=== PATIENT | female | born 1990 | race Caucasian/White ===

== ENCOUNTER → 2018-10-17 | Outpatient (REF) | payer MEDICARE, MEDICAID ==
[~2018-10-17] MED LIST: LATU20TA PO; TRAZ-163 PO; TRIL1TAB PO; TRIL300S PO
[2018-10-17 12:26] LABS: HEMATOCRIT 40.1 % (36.0-47.0); HEMOGLOBIN 12.9 g/dl (12.0-15.5); MEAN CORPUSCULAR HEMOGLOBIN 27.7 pg (27.0-33.0); MEAN CORPUSCULAR HGB CONC 32.2 g/dl (32.0-36.5); MEAN CORPUSCULAR VOLUME 86.1 fl (80.0-96.0); PLATELET COUNT, AUTOMATED 300 10^3/uL (150-450); RED BLOOD COUNT 4.66 10^6/uL (4.00-5.40); WHITE BLOOD COUNT 8.1 10^3/uL (4.0-10.0)
[2018-10-17 12:35] LABS: ALBUMIN 4.1 GM/DL (3.2-5.2); ALT/SGPT 30 U/L (12-78); BILIRUBIN,TOTAL 0.4 MG/DL (0.2-1.0); BLOOD UREA NITROGEN 15 MG/DL (7-18); CALCIUM LEVEL 8.4 MG/DL (8.5-10.1); CARBON DIOXIDE LEVEL 26 MEQ/L (21-32); CHLORIDE LEVEL 111 MEQ/L (98-107); CHOLESTEROL LEVEL 161 MG/DL (<200); CHOLESTEROL RISK RATIO 4.878 (<5); CREATININE FOR GFR 0.77 MG/DL (0.55-1.30); FREE T4 1.08 NG/DL (0.76-1.46); GLOMERULAR FILTRATION RATE > 60.0 (>60); GLUCOSE, FASTING 101 MG/DL (70-100); HDL CHOLESTEROL 33 MG/DL (>40); LDL CHOLESTEROL 105 MG/DL (<100); NON-HDL-C 128 MG/DL; POTASSIUM SERUM 4.4 MEQ/L (3.5-5.1); SODIUM LEVEL 140 MEQ/L (136-145); TOTAL 25(OH) VITAMIN D 19.5 NG/ML (30.0-100.0); TOTAL PROTEIN 6.8 GM/DL (6.4-8.2); TRIGLYCERIDES LEVEL 115 MG/DL (<150); VITAMIN B12 LEVEL 448 PG/ML
[2018-10-17 14:14] LABS: FOLATE 12.7 NG/ML
== END ==
LOC: M SFHCPLAZ 10:04
PROVIDERS: ATTEND Nurse Practitioner Family
DX: R53.82 Chronic fatigue, unspecified (principal); Z13.220 Encounter for screening for lipoid disorders

== ENCOUNTER 2019-03-06 12:15 | Emergency (ER) | payer MEDICARE, MEDICAID ==
[~2019-03-06] VITALS: Ht 157.5 cm; Wt 78.6 kg
[2019-03-06 13:24] LABS: HEMATOCRIT 41.4 % (36.0-47.0); MEAN CORPUSCULAR HEMOGLOBIN 30.1 pg (27.0-33.0); MEAN CORPUSCULAR HGB CONC 33.8 g/dl (32.0-36.5); PLATELET COUNT, AUTOMATED 272 10^3/uL (150-450); RED BLOOD COUNT 4.65 10^6/uL (4.00-5.40); WHITE BLOOD COUNT 10.4 10^3/uL (4.0-10.0)
[2019-03-06 13:26] LABS: HCG, SERUM QUALITATIVE NEGATIVE (NEGATIVE)
[2019-03-06 13:34] LABS: ACETAMINOPHEN LEVEL < 2.0 UG/ML (10.0-30.0); ALBUMIN 4.2 GM/DL (3.2-5.2); ALT/SGPT 29 U/L (12-78); BILIRUBIN,DIRECT 0.1 MG/DL (0.0-0.2); BILIRUBIN,TOTAL 0.3 MG/DL (0.2-1.0); BLOOD UREA NITROGEN 16 MG/DL (7-18); CARBON DIOXIDE LEVEL 24 MEQ/L (21-32); CHLORIDE LEVEL 109 MEQ/L (98-107); CREATININE FOR GFR 0.78 MG/DL (0.55-1.30); ETHYL ALCOHOL (ETHANOL) < 0.003 % (0.000-0.010); GLOMERULAR FILTRATION RATE > 60.0 (>60); GLUCOSE, FASTING 96 MG/DL (70-100); SALICYLATE LEVEL 3.3 MG/DL (5.0-30.0); SODIUM LEVEL 140 MEQ/L (136-145); TOTAL PROTEIN 7.4 GM/DL (6.4-8.2)
[2019-03-06 13:43] LABS: AMPHETAMINES LEVEL URINE NEGATIVE (NEGATIVE); BARBITURATES URINE NEGATIVE (NEGATIVE); BENZODIAZEPINES URINE NEGATIVE (NEGATIVE); CANNABINOIDS URINE NEGATIVE (NEGATIVE); COCAINE METABOLITE URINE NEGATIVE (NEGATIVE); METHADONE URINE NEGATIVE (NEGATIVE); OPIATES URINE NEGATIVE (NEGATIVE); PHENCYCLIDINE URINE NEGATIVE (NEGATIVE)
[2019-03-06 15:23] VITALS: BP 137/83
== END 2019-03-06 15:38 | disposition home or self-care (01) ==
LOC: M ED 12:15
DX: F33.9 Major depressive disorder, recurrent, unspecified (principal); J45.909 Unspecified asthma, uncomplicated; Z88.0 Allergy status to penicillin
CPT/HCPCS: 36415; 80048; 80076; 80307; 84443; 84703; 85027; 99283; G0480

== ENCOUNTER 2019-04-15 10:43 | Emergency (ER) | payer MEDICARE, MEDICAID ==
[~2019-04-15] VITALS: Ht 157.5 cm; Wt 81.7 kg
[2019-04-15] MEDS ORDERED: CIPR500T3 PO (10:51)
[2019-04-15] MEDS ORDERED: TRAM50TA2 PO (10:51)
[2019-04-15 11:40] LABS: BASO % 0.4 % (0.0-1.0); EOS # 0.3 10^3/uL (0.0-0.5); EOS % 4.2 % (0.0-3.0); HEMATOCRIT 38.3 % (36.0-47.0); HEMOGLOBIN 12.7 g/dl (12.0-15.5); LYMPH # 2.2 10^3/uL (1.5-5.0); LYMPH % 31.4 % (24.0-44.0); MEAN CORPUSCULAR HGB CONC 33.2 g/dl (32.0-36.5); MEAN CORPUSCULAR VOLUME 90.5 fl (80.0-96.0); MONO # 0.5 10^3/uL (0.0-0.8); MONO % 6.9 % (0.0-5.0); NEUTROPHILS % 56.7 % (36.0-66.0); PLATELET COUNT, AUTOMATED 212 10^3/uL (150-450); RED BLOOD COUNT 4.23 10^6/uL (4.00-5.40)
[2019-04-15] MEDS ORDERED: GI COCKTAIL 50ML BTL(HYOSCYAMINE/MAALOX/LIDOCAINE VISCOUS)(1:3:1) PO ONE (12:00)
[2019-04-15 12:11] LABS: ALBUMIN 3.5 GM/DL (3.2-5.2); ALT/SGPT 24 U/L (12-78); BILIRUBIN,DIRECT 0.1 MG/DL (0.0-0.2); BILIRUBIN,TOTAL 0.4 MG/DL (0.2-1.0); BLOOD UREA NITROGEN 13 MG/DL (7-18); CALCIUM LEVEL 8.1 MG/DL (8.5-10.1); CARBON DIOXIDE LEVEL 28 MEQ/L (21-32); CHLORIDE LEVEL 109 MEQ/L (98-107); CREATININE FOR GFR 0.79 MG/DL (0.55-1.30); GLOMERULAR FILTRATION RATE > 60.0 (>60); GLUCOSE, FASTING 83 MG/DL (70-100); LIPASE 87 U/L (73-393); POTASSIUM SERUM 3.8 MEQ/L (3.5-5.1); SODIUM LEVEL 139 MEQ/L (136-145); TOTAL PROTEIN 6.8 GM/DL (6.4-8.2)
[2019-04-15 12:12] LABS: HCG, SERUM QUALITATIVE NEGATIVE (NEGATIVE)
--- NOTE | 2019-04-15 12:48 | REP ---
Right upper quadrant sonography: History: However quadrant pain. Comparison study: No comparison study. Findings: Scanning through the right upper quadrant of the abdomen demonstrates a normal sized, thin-walled gallbladder without evidence of stone or polyp. Common bile duct is normal measuring 0.4 cm in greatest diameter. No focal liver lesion is seen. Liver size is normal. No pancreatic abnormality is observed. No right renal abnormality is seen. There is no evidence of ascites. The right kidney measures 11.7 x 3.6 x 5.3 cm. Impression: Negative right upper quadrant sonography. Electronically Signed by Camilo Zuñiga MD 04/15/2019 12:40 P
[2019-04-15] MEDS ORDERED: PRIL20TA2 PO (13:08)
[2019-04-15] MEDS ORDERED: CARA1TAB6 PO (13:08)
[2019-04-15 13:25] VITALS: BP 128/79
== END 2019-04-15 13:30 | disposition home or self-care (01) ==
LOC: M ED 10:43
DX: K29.70 Gastritis, unspecified, without bleeding (principal); R73.03 Prediabetes; F43.10 Post-traumatic stress disorder, unspecified; F31.9 Bipolar disorder, unspecified; F17.210 Nicotine dependence, cigarettes, uncomplicated; J45.909 Unspecified asthma, uncomplicated; Z88.0 Allergy status to penicillin

== ENCOUNTER 2019-06-18 11:09 | Emergency (ER) | payer MEDICARE, MEDICAID ==
[~2019-06-18] VITALS: Ht 157.5 cm; Wt 77.7 kg
[~2019-06-18 11:09] MED LIST changes: +CARA1TAB6 PO; +CIPR500T3 PO; +PRIL20TA2 PO; +TRAM50TA2 PO
[2019-06-18] MEDS ORDERED: FLUO10CA15 (11:20)
[2019-06-18 13:12] LABS: HEMATOCRIT 40.9 % (36.0-47.0); HEMOGLOBIN 13.4 g/dl (12.0-15.5); MEAN CORPUSCULAR HEMOGLOBIN 29.1 pg (27.0-33.0); MEAN CORPUSCULAR HGB CONC 32.8 g/dl (32.0-36.5); MEAN CORPUSCULAR VOLUME 88.7 fl (80.0-96.0); PLATELET COUNT, AUTOMATED 305 10^3/uL (150-450); RED BLOOD COUNT 4.61 10^6/uL (4.00-5.40); WHITE BLOOD COUNT 9.8 10^3/uL (4.0-10.0)
[2019-06-18 13:50] LABS: FREE T4 0.92 NG/DL (0.76-1.46); THYROID STIMULATING HORMONE 1.87 uIU/ML (0.358-3.740)
--- NOTE | 2019-06-18 14:29 | REP ---
ULTRASOUND THYROID: Real-time sonographic evaluation of the thyroid performed. Thyroid is normal in size bilaterally. Right lobe measures 4.0 x 1.8 x 1.2 cm and left lobe 4.4 x 1.6 x 1.2 cm. No cystic or solid nodule is seen. IMPRESSION: Normal appearance of thyroid. Electronically Signed by Zechariah Grant MD 06/19/2019 07:06 P
[2019-06-18 14:42] VITALS: BP 124/68
== END 2019-06-18 14:43 | disposition home or self-care (01) ==
LOC: M ED 11:09
DX: J02.9 Acute pharyngitis, unspecified (principal); R13.10 Dysphagia, unspecified; J45.909 Unspecified asthma, uncomplicated; K21.9 Gastro-esophageal reflux disease without esophagitis; F33.9 Major depressive disorder, recurrent, unspecified; F43.10 Post-traumatic stress disorder, unspecified; Z79.899 Other long term (current) drug therapy; Z88.0 Allergy status to penicillin; F17.210 Nicotine dependence, cigarettes, uncomplicated

== ENCOUNTER → 2019-09-05 | Outpatient (REF) | payer MEDICARE, MEDICAID ==
[~2019-09-05] MED LIST changes: +FLUO10CA15; -TRAZ-163 PO; +TRAZ-257 PO; +ZITHTAB PO
[2019-09-05 17:13] LABS: INFLUENZA A AMPLIFICATION NEGATIVE (NEGATIVE); INFLUENZA B AMPLIFICATION NEGATIVE (NEGATIVE)
== END ==
LOC: M LAB REF 16:22
PROVIDERS: ATTEND Physician Assistant
DX: J11.1 Influenza due to unidentified influenza virus with other respiratory manifestations (principal)

== ENCOUNTER 2019-09-07 19:48 | Emergency (ER) | payer MEDICARE, MEDICAID ==
[~2019-09-07] VITALS: Ht 157.5 cm; Wt 79.4 kg
[2019-09-07 19:48] VITALS: BP 151/80
[~2019-09-07 19:48] MED LIST changes: -ZITHTAB PO
[2019-09-07] MEDS ORDERED: AZITHROMYCIN 250 MG TAB PO ONE (20:45)
[2019-09-07] MEDS ORDERED: ZITHTAB PO (20:51)
== END 2019-09-07 20:59 | disposition home or self-care (01) ==
LOC: M ED 19:48
DX: J02.0 Streptococcal pharyngitis (principal); Z88.0 Allergy status to penicillin

== ENCOUNTER → 2020-02-13 | Outpatient (CLI) | payer MEDICARE, MEDICAID ==
[~2020-02-13] MED LIST changes: -FLUO10CA15; +FLUO10CA16; +PRED20TA PO; +TRAM50TA2; +ZITHTAB PO
--- NOTE | 2020-04-11 10:25 | REP ---
SACRUM AND COCCYX SERIES: HISTORY: Fall onto tailbone. FINDINGS: 3-views of the sacrum and coccyx are performed. I see no evidence of acute fracture, dislocation or intrinsic bone disease. IMPRESSION: No evidence of acute fracture or dislocation. MTDD
== END ==
LOC: M WUC 15:46
PROVIDERS: ATTEND Physician Assistant
DX: M54.5 Low back pain (principal)

== ENCOUNTER 2020-03-16 09:29 | Emergency (ER) | payer MEDICARE, MEDICAID ==
[~2020-03-16] VITALS: Ht 157.5 cm; Wt 87.3 kg
[~2020-03-16 09:29] MED LIST changes: -PRED20TA PO; -TRAM50TA2
[2020-03-16] MEDS ORDERED: TRAM50TA2 (09:34)
[2020-03-16] MEDS ORDERED: LIDOCAINE 5% (LIDODERM) PATCH TD ONE (10:00)
[2020-03-16] MEDS ORDERED: ACETAMINOPHEN 500 MG TAB PO ONE (10:00)
--- NOTE | 2020-03-16 10:35 | REPVR ---
PROCEDURE INFORMATION: Exam: CT Lumbar Spine Without Contrast Exam date and time: 03/16/2020 9:51 AM Age: 30 years old Clinical indication: Pain; Other: Back; Additional info: Pain over lumbar spine TECHNIQUE: Imaging protocol: Computed tomography images of the lumbar spine without contrast. Radiation optimization: All CT scans at this facility use at least one of these dose optimization techniques: automated exposure control; mA and/or kV adjustment per patient size (includes targeted exams where dose is matched to clinical indication); or iterative reconstruction. COMPARISON: No relevant prior studies available. FINDINGS: Vertebrae: There is a moderate lumbar dextroscoliotic curvature. No acute fracture. Normal alignment. L1-L2: No significant disc protrusion. No severe spinal canal stenosis. No significant neural foraminal narrowing. L2-L3: No significant disc protrusion. No spinal canal stenosis. No neural foraminal narrowing. L3-L4: No significant disc protrusion. No severe spinal canal stenosis. No significant neural foraminal narrowing. L4-L5: No significant disc protrusion. No severe spinal canal stenosis. No significant neural foraminal narrowing. L5-S1: There is moderate intervertebral disc space loss. There is diffuse disc bulging. There is mild facet hypertrophy. There is mild bilateral neural foraminal narrowing. Other: Increased sclerosis is noted along the inferior sacroiliac joints bilaterally, suggestive of sacroiliitis. Soft tissues: Unremarkable. IMPRESSION: 1. No acute fracture. Lumbar dextroscoliosis. 2. Degenerative disc disease and spondylosis at L5/S1, contributing to mild bilateral neural foraminal narrowing. 3. Increased sclerosis along the inferior sacroiliac joints bilaterally, potentially sacroiliitis. Electronically signed by: Fozia Welch On 03/16/2020 10:35:13 AM
[2020-03-16] MEDS ORDERED: PRED20TA PO (10:57)
[2020-03-16 11:04] VITALS: BP 122/75
[2020-03-16] MEDS ORDERED: **NOTE PATIENT COMMENT** MISC XX ONE (22:00)
== END 2020-03-16 11:13 | disposition home or self-care (01) ==
LOC: M ED 09:29
DX: M46.1 Sacroiliitis, not elsewhere classified (principal); J45.909 Unspecified asthma, uncomplicated; M51.9 Unspecified thoracic, thoracolumbar and lumbosacral intervertebral disc disorder; Z88.0 Allergy status to penicillin; F17.210 Nicotine dependence, cigarettes, uncomplicated

== ENCOUNTER → 2020-04-01 | Outpatient (CLI) | payer MEDICARE, MEDICAID ==
[~2020-04-01] MED LIST changes: +PRED20TA PO; +TRAM50TA2
== END ==
LOC: M LABSMTC 09:59
PROVIDERS: ATTEND Orthopaedic Surgery
DX: Z01.812 Encounter for preprocedural laboratory examination (principal); Z20.828 Contact with and (suspected) exposure to other viral communicable diseases

== ENCOUNTER → 2020-04-02 | Outpatient (CLI) | payer MEDICARE, MEDICAID | LOC: M LABSMTC 09:44 | PROVIDERS: ATTEND Orthopaedic Surgery | DX: Z01.812 Encounter for preprocedural laboratory examination (principal); Z20.828 Contact with and (suspected) exposure to other viral communicable diseases ==

== ENCOUNTER → 2024-06-20 | Outpatient (REF) | payer MEDICARE, MEDICAID ==
[~2024-06-20] MED LIST changes: +FLUO-290; -FLUO10CA16
== END ==
LOC: M LAB REF 12:30
PROVIDERS: ATTEND Physician Assistant
DX: B34.9 Viral infection, unspecified (principal)